=== PATIENT | male | born 1940 | race Caucasian/White ===

== ENCOUNTER 2022-04-02 10:34 | Day surgery (SDC) | payer OTHER, MEDICARE ==
[2022-04-01 15:03] VITALS: BMI 21.7
[2022-04-02] MEDS ORDERED: TROPICAMIDE 1% OPHTH SOLN 15 ML BOTTLE OS ONE ×3 (10:45→10:55)
[2022-04-02] MEDS ORDERED: CYCLOPENTOLATE 2% OPHTH SOLN 2 ML BOTTLE OS ONE ×3 (10:45→10:55)
[2022-04-02] MEDS ORDERED: CIPROFLOXACIN 0.3% EYE DROPS 5 ML BOTTLE OS ONE ×3 (10:45→10:55)
[2022-04-02] MEDS ORDERED: PHENYLEPHRINE 2.5% OPHTH SOLN 15 ML BOTTLE OS ONE ×3 (10:45→10:55)
[2022-04-02] MEDS ORDERED: TETRACAINE 0.5% OPHTH SOLN 2 ML BOTTLE ONE (11:00)
[2022-04-02] MEDS ORDERED: BSS (NA/CA/MG/K) BALANCED SALT SOLUTION OPHTH SOLN 15 ML BOTTLE ONE (11:00)
[2022-04-02] MEDS ORDERED: NEO/POLYMYX B SULF/DEXAMETH OPHTHALMIC 5ML BOTTLE ONE (11:00)
[2022-04-02] MEDS ORDERED: LIDOCAINE 1% P/F 10 MG/ML VIAL ONE (11:00)
[2022-04-02] MEDS ORDERED: CARBACHOL 0.01% INTRA-OCULAR 1.5 ML VIAL ONE (11:00)
[2022-04-02] MEDS ORDERED: MIDAZOLAM HCL 2 MG/2 ML SINGLE DOSE VIAL ONE (11:05)
[2022-04-02 11:35] VITALS: TEMP 97.8
[2022-04-02 12:01] VITALS: BP 102/66; PULSE 58
== END 2022-04-02 12:00 | disposition home or self-care (01) ==
LOC: FASU 10:34
PROVIDERS: ATTEND Ophthalmology
PROC: 08RK3JZ Replacement of Left Lens with Synthetic Substitute, Percutaneous Approach (ICD-10-PCS; principal; 2022-04-02 11:08)
DX: H26.8 Other specified cataract (principal)
CPT/HCPCS: 66984; V2632

== ENCOUNTER 2022-05-20 09:22 | Day surgery (SDC) | payer OTHER, MEDICARE ==
[2022-04-30 09:43] VITALS: BMI 21.7
[2022-05-20] MEDS ORDERED: CARBACHOL 0.01% INTRA-OCULAR 1.5 ML VIAL ONE (09:31)
[2022-05-20] MEDS ORDERED: NEO/POLYMYX B SULF/DEXAMETH OPHTHALMIC 5ML BOTTLE ONE (09:31)
[2022-05-20] MEDS ORDERED: BSS (NA/CA/MG/K) BALANCED SALT SOLUTION OPHTH SOLN 15 ML BOTTLE ONE (09:31)
[2022-05-20 09:55] VITALS: TEMP 98.6
[2022-05-20] MEDS: PHENYLEPHRINE 2.5% OPHTH SOLN 15 ML BOTTLE ONE ×3 (09:55→10:05)
[2022-05-20] MEDS: TROPICAMIDE 1% OPHTH SOLN 15 ML BOTTLE ONE ×3 (09:55→10:05)
[2022-05-20] MEDS: CIPROFLOXACIN 0.3% EYE DROPS 5 ML BOTTLE ONE ×3 (09:55→10:05)
[2022-05-20] MEDS: CYCLOPENTOLATE 2% OPHTH SOLN 2 ML BOTTLE ONE ×3 (09:55→10:05)
[2022-05-20] MEDS ORDERED: LIDOCAINE HCL/PF 1% SDV 5ML VIAL ONE (11:42)
[2022-05-20] MEDS ORDERED: MIDAZOLAM HCL 2 MG/2 ML SINGLE DOSE VIAL ONE (11:47)
[2022-05-20 12:37] VITALS: BP 110/66; PULSE 56
== END 2022-05-20 12:40 | disposition home or self-care (01) ==
LOC: FASU 09:22
PROVIDERS: ATTEND Ophthalmology
PROC: 08RJ3JZ Replacement of Right Lens with Synthetic Substitute, Percutaneous Approach (ICD-10-PCS; principal; 2022-05-20 11:51)
DX: H26.8 Other specified cataract (principal)
CPT/HCPCS: 66984; V2632